=== PATIENT | female | born 1960 | race Two or more races ===

== ENCOUNTER 2016-12-18 19:08 | Inpatient (IN) | payer OTHER ==
[~2016-12-18] VITALS: Ht 160 cm; Wt 68.5 kg
[2016-12-18 20:45] LABS: BASOPHILS % (AUTO) 1.1 % (0.0-2.0); EOSINOPHILS % (AUTO) 7.5 % (0.0-3.0); LYMPHOCYTES % (AUTO) 22.7 % (20.0-45.0); MEAN CORPUSCULAR HEMOGLOBIN 32.6 PG (27.0-31.0); MEAN CORPUSCULAR HGB CONC 36.2 G/DL (32.0-36.0); MEAN CORPUSCULAR VOLUME 90 FL (80-99); MEAN PLATELET VOLUME 9.7 FL (6.5-10.1); MONOCYTES % (AUTO) 4.4 % (1.0-10.0); NEUTROPHILS % (AUTO) 64.4 % (45.0-75.0); PLATELET COUNT 147 K/UL (150-450); RED BLOOD COUNT 4.13 M/UL (4.20-5.40); RED CELL DISTRIBUTION WIDTH 12.7 % (11.6-14.8); WHITE BLOOD COUNT 6.6 K/UL (4.8-10.8)
[2016-12-18 21:01] LABS: APPEARANCE,URINE CLEAR; KETONES,URINE 1+ (NEGATIVE); LEUKOCYTE ESTERASE ,URINE NEGATIVE (NEGATIVE); NITRITE,URINE NEGATIVE (NEGATIVE); PH,URINE 7 (4.5-8.0); PROTEIN,URINE 1+ (NEGATIVE); UROBILINOGEN,URINE NORMAL MG/DL (0.0-1.0)
[2016-12-18 21:07] VITALS: BP 121/76
[2016-12-18 21:12] LABS: RBC,URINE 0-2 /HPF (0 - 2); SQUAMOUS EPITHELIAL CELL,UR OCCASIONAL /LPF (NONE/OCC); WBC,URINE 0-2 /HPF (0 - 2)
[2016-12-18 21:14] LABS: ACETAMINOPHEN < 10 ug/mL (10-30); ALANINE AMINOTRANSFERASE 24 U/L (3-33); ALCOHOL < 10 mg/dL; ANION GAP 18 (5-15); ASPARTATE AMINO TRANSFERASE 29 U/L (5-40); CARBON DIOXIDE 24 mEQ/L (20-30); CHLORIDE 96 mEQ/L (98-107); GLOMERULAR FILTRATION RATE 56.9 mL/min (>60); HEMOLYSIS 106; POTASSIUM 4.4 mEQ/L (3.4-4.9); SODIUM 138 mEQ/L (135-145); TOTAL PROTEIN 7.2 g/dL (6.6-8.7); TROPONIN I < 0.30 ng/mL (<=0.30)
[2016-12-18] MEDS ORDERED: levETIRAcetam 500 MG in D5W 110 ML IVPB ONE (22:15)
[2016-12-18] MEDS ORDERED: levETIRAcetam 500mg vial IV ONE (22:39)
[2016-12-18 23:03] VITALS: BP 130/58
--- NOTE | 2016-12-18 23:31 | Emergency Room Report ---
History of Present Illness General Chief Complaint: Seizure Source: Patient Present Illness HPI 56-year-old female presents to ED for evaluation. Per EMS she [place] Son is at bedside states that he was walking behind the patient when she looked unsteady and had to lean against a wall. Once patient was on the floor he noticed seizure-like activity for approximately 1 minute. Notes some foaming from the mouth. Seizure then subsided. Patient was initially confused on arrival. Son states that patient does not have any history of seizures. Unsure whether patient hit her head. No drug use. No chest pain or shortness of breath. No fevers or chills. No aggravating or leading factors. Denies any other associated symptoms Allergies: Coded Allergies: No Known Allergies (Unverified , 12/18/16) Patient History Past Medical History: none Past Surgical History: none Pertinent Family History: none Social History: Denies: alcohol use, drug use, smoking Now: No Immunizations: UTD Reviewed Nursing Documentation: PMH: Agreed, PSxH: Agreed Nursing Documentation-PMH Past Medical History: No History, Except For Hx Cardiac Problems: Yes - arrythmia (unspecified) Hx Seizures: Yes Review of Systems All Other Systems: negative except mentioned in HPI Physical Exam Vital Signs Date Time Temp Pulse Resp B/P Pulse Ox O2 Delivery O2 Flow Rate FiO2 12/18/16 18:59 98.4 106 16 135/74 99 Room Air Sp02 EP Interpretation: reviewed, normal General Appearance: no apparent distress, alert, GCS 15, non-toxic Head: normocephalic, atraumatic Eyes: bilateral eye PERRL, bilateral eye normal inspection ENT: hearing grossly normal, normal pharynx, no angioedema, normal voice Neck: full range of motion, supple/symm/no masses Respiratory: chest non-tender, lungs clear, normal breath sounds, speaking full sentences Cardiovascular #1: regular rate, rhythm, no edema Cardiovascular #2: 2+ carotid (R), 2+ carotid (L), 2+ radial (R), 2+ radial (L) , 2+ dorsalis pedis (R), 2+ dorsalis pedis (L) Gastrointestinal: normal bowel sounds, non tender, soft, non-distended, no guarding, no rebound Rectal: deferred Genitourinary: normal inspection, no CVA tenderness Musculoskeletal: back normal, gait/station normal, normal range of motion, non- tender Neurologic: alert, oriented x3, responsive, motor strength/tone normal, sensory intact, speech normal Psychiatric: judgement/insight normal, memory normal, mood/affect normal, no suicidal/homicidal ideation Reflexes: 3+ bicep (R), 3+ bicep (L), 3+ tricep (R), 3+ tricep (L), 3+ knee (R) , 3+ knee (L) Skin: normal color, no rash, warm/dry, well hydrated Lymphatic: no adenopathy Medical Decision Making Diagnostic Impression: Primary Impression: New onset seizure ER Course Hospital Course 56-year-old F presents to ED status post seizure. witnessed. no history of seizures Differential diagnosis includes- intracranial injury, arrhythmia, alcohol abuse , substance abuse Clinical course Patient placed on stretcher. Initial history and physical I ordered labs, IV fluids, CT brain Labs-electrolytes okay, leukocytosis noted, hemoglobin/hematocrit stable. EKG - NSR, no acute changes CT Brain ok Given loading dose of Keppra. Patient is more awake but still confused. Given this is a new onset seizure the patient should be admitted Case discussed with and he agreed to accept the patient to his service for further care and support. i. I feel this is a highly complex case requiring extensive working including EKG/Rhythm strip, Xray/CT/US, Blood/urine lab work, repeat exams while in ED, and administration of strong opiates/narcotics for pain control, admission to hospital or close patient follow up. Diagnosis - new onset seizure admitted to telemetry in serious condition Labs Test 12/18/16 20:40 White Blood Count 6.6 K/UL (4.8-10.8) Red Blood Count 4.13 M/UL (4.20-5.40) Hemoglobin 13.5 G/DL (12.0-16.0) Hematocrit 37.2 % (37.0-47.0) Mean Corpuscular Volume 90 FL (80-99) Mean Corpuscular Hemoglobin 32.6 PG (27.0-31.0) Mean Corpuscular Hemoglobin Concent 36.2 G/DL (32.0-36.0) Red Cell Distribution Width 12.7 % (11.6-14.8) Platelet Count 147 K/UL (150-450) Mean Platelet Volume 9.7 FL (6.5-10.1) Neutrophils (%) (Auto) 64.4 % (45.0-75.0) Lymphocytes (%) (Auto) 22.7 % (20.0-45.0) Monocytes (%) (Auto) 4.4 % (1.0-10.0) Eosinophils (%) (Auto) 7.5 % (0.0-3.0) Basophils (%) (Auto) 1.1 % (0.0-2.0) Urine Color Pale yellow Urine Appearance Clear Urine pH 7 (4.5-8.0) Urine Specific [place] 1.010 (1.005-1.035) Urine Protein 1+ (NEGATIVE) Urine Glucose (UA) Negative (NEGATIVE) Urine Ketones 1+ (NEGATIVE) Urine Occult Blood Negative (NEGATIVE) Urine Nitrite Negative (NEGATIVE) Urine Bilirubin Negative (NEGATIVE) Urine Urobilinogen Normal MG/DL (0.0-1.0) Urine Leukocyte Esterase Negative (NEGATIVE) Urine RBC 0-2 /HPF (0 - 2) Urine WBC 0-2 /HPF (0 - 2) Urine Squamous Epithelial Cells Occasional /LPF Urine Bacteria None /HPF (NONE) Sodium Level 138 mEQ/L (135-145) Potassium Level 4.4 mEQ/L (3.4-4.9) Chloride Level 96 mEQ/L (98-107) Carbon Dioxide Level 24 mEQ/L (20-30) Anion Gap 18 (5-15) Blood Urea Nitrogen 21 mg/dL (7-23) Creatinine 1.0 mg/dL (0.5-0.9) Estimat Glomerular Filtration Rate 56.9 mL/min (>60) Glucose Level 188 mg/dL (74-106) Calcium Level 9.0 mg/dL (8.6-10.2) Total Bilirubin 0.8 mg/dL (0.0-1.2) Aspartate Amino Transf (AST/SGOT) 29 U/L (5-40) Alanine Aminotransferase (ALT/SGPT) 24 U/L (3-33) Alkaline Phosphatase 80 U/L (35-104) Total Creatine Kinase 58 U/L (26-140) Troponin I < 0.30 ng/mL (<=0.30) Total Protein 7.2 g/dL (6.6-8.7) Albumin 4.8 g/dL (3.5-5.2) Globulin 2.4 g/dL Albumin/Globulin Ratio 2.0 (1.0-2.7) Salicylates Level < 1 mg/dL (10-30) Urine Opiates Screen Negative (NEGATIVE) Acetaminophen Level < 10 ug/mL (10-30) Urine Barbiturates Screen Negative (NEGATIVE) Phencyclidine (PCP) Screen Negative (NEGATIVE) Urine Amphetamines Screen Negative (NEGATIVE) Urine Benzodiazepines Screen Negative (NEGATIVE) Urine Cocaine Screen Negative (NEGATIVE) Urine Marijuana (THC) Screen Negative (NEGATIVE) Serum Alcohol < 10 mg/dL EKG Diagnostic Results Rate: normal Rhythm: NSR ST Segments: no acute changes ASA given to the pt in ED: No Rhythm Strip Diag. Results EP Interpretation: yes Rhythm: NSR, no PVC's, no ectopy CT/MRI/US Diagnostic Results CT/MRI/US Diagnostic Results : Imaging Test Ordered: CT head Impression no acute process Last Vital Signs Date Time Temp Pulse Resp B/P Pulse Ox O2 Delivery O2 Flow Rate FiO2 12/18/16 23:03 87 24 130/58 99 Room Air 12/18/16 21:07 98.9 Status: improved Disposition: ADMITTED INPATIENT Condition: Serious LIZZ FERGUSON M.D. Dec 18, 2016 23:31
[2016-12-19 01:31] VITALS: BP 134/69
[2016-12-19] MEDS ORDERED: LORazepam Inj 2mg/ml 1ml IV PRN (03:30)
[2016-12-19] MEDS ORDERED: Norco 5mg/325mg tab ORAL PRN (03:30)
[2016-12-19] MEDS: metFORMIN 500mg tab ORAL SCH ×3 (05:53→18:24)
[2016-12-19] MEDS: NovoLOG Insulin Flexpen SUBQ SCH ×4 (06:02→21:00)
[2016-12-19 07:47] VITALS: BP 112/68
[2016-12-19] MEDS: Heparin 5000 units/ml inj SUBQ SCH ×2 (08:18→21:00)
--- NOTE | 2016-12-19 09:23 | Diagnostic Imaging Report ---
Indication: Seizure Technique: Contiguous 5 mm thick transaxial imaging of the head obtained in a Siemens Sensation [address] scanner. Soft tissue and bone windows generated. Total Dose length Product (DLP): [address] Dose Index Volume (CTDIvol): 70.38 mGy Comparison: none Findings: There is mild prominence of the ventricles, basal cisterns, and cerebral sulci consistent with atrophy. Mild, nonspecific, white matter hypoattenuation is noted throughout the brain consistent with chronic small vessel disease. There is no midline shift, edema, acute hemorrhage, mass effect, or abnormal extra-axial fluid collections. Bones and extra osseous soft tissues are unremarkable. Impression: No acute intracranial bleed, mass effect or edema. Mild atrophy of the brain. Nonspecific white matter hypoattenuation probably due to chronic small vessel disease. [facility] has communicated the preliminary results to the Emergency Department. Their findings are largely concordant with this report. The CT scanner at [facility] is accredited by the [employer] and the scans are performed using dose optimization techniques as appropriate to a performed exam including Automatic Exposure control.
[2016-12-19 11:32] VITALS: BP 109/68
--- NOTE | 2016-12-19 15:15 | Neurology Progress Note ---
Objective Physical Exam Last Vital Signs Date Time Temp Pulse Resp B/P Pulse Ox O2 Delivery O2 Flow Rate FiO2 12/19/16 12:00 75 12/19/16 11:32 97.7 18 109/68 99 Room Air Laboratory Tests Test 12/18/16 20:40 White Blood Count 6.6 K/UL (4.8-10.8) Red Blood Count 4.13 M/UL (4.20-5.40) L Hemoglobin 13.5 G/DL (12.0-16.0) Hematocrit 37.2 % (37.0-47.0) Mean Corpuscular Volume 90 FL (80-99) Mean Corpuscular Hemoglobin 32.6 PG (27.0-31.0) H Mean Corpuscular Hemoglobin Concent 36.2 G/DL (32.0-36.0) H Red Cell Distribution Width 12.7 % (11.6-14.8) Platelet Count 147 K/UL (150-450) L Mean Platelet Volume 9.7 FL (6.5-10.1) Neutrophils (%) (Auto) 64.4 % (45.0-75.0) Lymphocytes (%) (Auto) 22.7 % (20.0-45.0) Monocytes (%) (Auto) 4.4 % (1.0-10.0) Eosinophils (%) (Auto) 7.5 % (0.0-3.0) H Basophils (%) (Auto) 1.1 % (0.0-2.0) Urine Color Pale yellow Urine Appearance Clear Urine pH 7 (4.5-8.0) Urine Specific [place] 1.010 (1.005-1.035) Urine Protein 1+ (NEGATIVE) H Urine Glucose (UA) Negative (NEGATIVE) Urine Ketones 1+ (NEGATIVE) H Urine Occult Blood Negative (NEGATIVE) Urine Nitrite Negative (NEGATIVE) Urine Bilirubin Negative (NEGATIVE) Urine Urobilinogen Normal MG/DL (0.0-1.0) Urine Leukocyte Esterase Negative (NEGATIVE) Urine RBC 0-2 /HPF (0 - 2) Urine WBC 0-2 /HPF (0 - 2) Urine Squamous Epithelial Cells Occasional /LPF Urine Bacteria None /HPF (NONE) Sodium Level 138 mEQ/L (135-145) Potassium Level 4.4 mEQ/L (3.4-4.9) Chloride Level 96 mEQ/L (98-107) L Carbon Dioxide Level 24 mEQ/L (20-30) Anion Gap 18 (5-15) H Blood Urea Nitrogen 21 mg/dL (7-23) Creatinine 1.0 mg/dL (0.5-0.9) H Estimat Glomerular Filtration Rate 56.9 mL/min (>60) Glucose Level 188 mg/dL (74-106) H Calcium Level 9.0 mg/dL (8.6-10.2) Total Bilirubin 0.8 mg/dL (0.0-1.2) Aspartate Amino Transf (AST/SGOT) 29 U/L (5-40) Alanine Aminotransferase (ALT/SGPT) 24 U/L (3-33) Alkaline Phosphatase 80 U/L (35-104) Total Creatine Kinase 58 U/L (26-140) Troponin I < 0.30 ng/mL (<=0.30) Total Protein 7.2 g/dL (6.6-8.7) Albumin 4.8 g/dL (3.5-5.2) Globulin 2.4 g/dL Albumin/Globulin Ratio 2.0 (1.0-2.7) Salicylates Level < 1 mg/dL (10-30) L Urine Opiates Screen Negative (NEGATIVE) Acetaminophen Level < 10 ug/mL (10-30) L Urine Barbiturates Screen Negative (NEGATIVE) Phencyclidine (PCP) Screen Negative (NEGATIVE) Urine Amphetamines Screen Negative (NEGATIVE) Urine Benzodiazepines Screen Negative (NEGATIVE) Urine Cocaine Screen Negative (NEGATIVE) Urine Marijuana (THC) Screen Negative (NEGATIVE) Serum Alcohol < 10 mg/dL Impression/Recommendations Problems: (1) New onset seizure Status: stable Recommendations #[id number] NASEEM AUGUSTINE Dec 19, 2016 15:15
[2016-12-19 15:20] VITALS: BP 111/74
--- NOTE | 2016-12-19 16:41 | History and Physical ---
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 [place] Pt doesn't seem to remember a lot at this time and also speaks limited Syriac. She remembers that she had a seizure yesterday but is not sure if that has happened before. She also states that she has a surgery for uterine fibroids scheduled for Wednesday. History was obtained from medical records, according to the records, son was walking behind the patient when she looked unsteady and had to lean against a wall. Once patient was on the floor he noticed seizure-like activity for approximately 1 minute. Notes some foaming from the mouth. Seizure then subsided. Patient was initially confused on arrival to the ED. Son stated that the patient does not have any history of seizures. Unsure whether patient hit her head. No drug use. No chest pain or shortness of breath. No fevers or chills. No aggravating or leading factors. Denies any other associated symptoms Allergies: Coded Allergies: No Known Allergies (Unverified , 12/18/16) Patient History Limited by: language barrier History Provided By: Patient, Medical Record Healthcare decision maker Resuscitation status Full Code Advanced Directive on File No Past Medical/Surgical History Past Medical/Surgical History: (1) Diabetes (2) H/O mitral valve replacement Social History Social History: (1) No illicit drug use (2) No history of alcohol use (3) Non-smoker Review of Systems Constitutional: Denies: chills, fever, malaise, no symptoms, other, see HPI, sweats, weakness Eye: Denies: acuity changes, blurred vision, discharge, double vision, eye pain , no symptoms, nose congestion, nose pain, other, see HPI, tearing ENT: Denies: ear discharge, ear pain, hearing loss, mouth pain, nasal discharge , no symptoms, nose congestion, nose pain, other, see HPI, throat pain, throat swelling Respiratory: Denies: SWIFT, cough, no symptoms, orthopnea, other, see HPI, shortness of breath, sputum, stridor, wheezing Cardiovascular: Denies: PND, chest pain, edema, no symptoms, other, palpitations, see HPI, syncope Gastrointestinal: Denies: abdominal pain, constipation, diarrhea, hematemesis, melena, nausea, no symptoms, other, see HPI, vomiting Genitourinary: Denies: discharge, dysuria, frequency, hematuria, incontinence, no symptoms, other, pain, retention, see HPI, urgency, vag bleed/dc Musculoskeletal: Denies: back pain, gout, joint pain, joint swelling, muscle pain, muscle stiffness, no symptoms, other, see HPI Skin: Denies: change in color, change in hair/nails, dryness, lesions, no symptoms, other, rash, see HPI Psychiatric: Denies: HI, SI, anxiety, depressed feelings, emotional problems, hallucinations, no symptoms, other, prior hx, see HPI Neurological: Reports: seizure Endocrine: Denies: excessive sweating, flushing, increased thirst, increased urine, intolerance to temperature, no symptoms, other, see HPI, unexplained weight loss Hematologic/Lymphatic: Denies: anemia, blood clots, diathesis, easy bleeding, easy bruising, no symptoms, other, see HPI, swollen glands All Other Systems: negative except mentioned in HPI Physical Exam General Appearance: no apparent distress, alert Lines, tubes and drains: peripheral HEENT: normocephalic, atraumatic Neck: normal alignment, supple, normal inspection Respiratory/Chest: chest wall non-tender, lungs clear, normal breath sounds, no respiratory distress Cardiovascular/Chest: normal rate, regular rhythm, no JVD Abdomen: non tender, soft, no organomegaly, no mass Extremities: non-tender, normal inspection, no calf tenderness Skin Exam: warm/dry Neurologic: alert, responsive, normal mood/affect Last 24 Hour Vital Signs Date Time Temp Pulse Resp B/P Pulse Ox O2 Delivery O2 Flow Rate FiO2 12/19/16 15:20 97.9 86 18 111/74 97 Room Air 12/19/16 12:00 75 12/19/16 11:32 97.7 84 18 109/68 99 Room Air 12/19/16 08:00 79 12/19/16 07:47 97.5 78 18 112/68 99 Room Air 12/19/16 04:00 82 12/19/16 02:20 98.9 84 21 134/69 99 Room Air 12/19/16 01:31 84 21 134/69 99 Room Air 12/18/16 23:03 87 24 130/58 99 Room Air 12/18/16 21:07 98.9 88 20 121/76 100 Room Air 12/18/16 19:25 106 16 Room Air 12/18/16 18:59 98.4 106 16 135/74 99 Room Air Intake and Output 12/18/16 12/19/16 19:00 07:00 Intake Total 1340 ml Output Total 200 ml Balance 1140 ml Intake Oral 0 ml IV Total 1340 ml Output Urine Total 200 ml # Voids 2 Laboratory Tests Test 12/18/16 20:40 White Blood Count 6.6 K/UL (4.8-10.8) Red Blood Count 4.13 M/UL (4.20-5.40) L Hemoglobin 13.5 G/DL (12.0-16.0) Hematocrit 37.2 % (37.0-47.0) Mean Corpuscular Volume 90 FL (80-99) Mean Corpuscular Hemoglobin 32.6 PG (27.0-31.0) H Mean Corpuscular Hemoglobin Concent 36.2 G/DL (32.0-36.0) H Red Cell Distribution Width 12.7 % (11.6-14.8) Platelet Count 147 K/UL (150-450) L Mean Platelet Volume 9.7 FL (6.5-10.1) Neutrophils (%) (Auto) 64.4 % (45.0-75.0) Lymphocytes (%) (Auto) 22.7 % (20.0-45.0) Monocytes (%) (Auto) 4.4 % (1.0-10.0) Eosinophils (%) (Auto) 7.5 % (0.0-3.0) H Basophils (%) (Auto) 1.1 % (0.0-2.0) Urine Color Pale yellow Urine Appearance Clear Urine pH 7 (4.5-8.0) Urine Specific [place] 1.010 (1.005-1.035) Urine Protein 1+ (NEGATIVE) H Urine Glucose (UA) Negative (NEGATIVE) Urine Ketones 1+ (NEGATIVE) H Urine Occult Blood Negative (NEGATIVE) Urine Nitrite Negative (NEGATIVE) Urine Bilirubin Negative (NEGATIVE) Urine Urobilinogen Normal MG/DL (0.0-1.0) Urine Leukocyte Esterase Negative (NEGATIVE) Urine RBC 0-2 /HPF (0 - 2) Urine WBC 0-2 /HPF (0 - 2) Urine Squamous Epithelial Cells Occasional /LPF Urine Bacteria None /HPF (NONE) Sodium Level 138 mEQ/L (135-145) Potassium Level 4.4 mEQ/L (3.4-4.9) Chloride Level 96 mEQ/L (98-107) L Carbon Dioxide Level 24 mEQ/L (20-30) Anion Gap 18 (5-15) H Blood Urea Nitrogen 21 mg/dL (7-23) Creatinine 1.0 mg/dL (0.5-0.9) H Estimat Glomerular Filtration Rate 56.9 mL/min (>60) Glucose Level 188 mg/dL (74-106) H Calcium Level 9.0 mg/dL (8.6-10.2) Total Bilirubin 0.8 mg/dL (0.0-1.2) Aspartate Amino Transf (AST/SGOT) 29 U/L (5-40) Alanine Aminotransferase (ALT/SGPT) 24 U/L (3-33) Alkaline Phosphatase 80 U/L (35-104) Total Creatine Kinase 58 U/L (26-140) Troponin I < 0.30 ng/mL (<=0.30) Total Protein 7.2 g/dL (6.6-8.7) Albumin 4.8 g/dL (3.5-5.2) Globulin 2.4 g/dL Albumin/Globulin Ratio 2.0 (1.0-2.7) Salicylates Level < 1 mg/dL (10-30) L Urine Opiates Screen Negative (NEGATIVE) Acetaminophen Level < 10 ug/mL (10-30) L Urine Barbiturates Screen Negative (NEGATIVE) Phencyclidine (PCP) Screen Negative (NEGATIVE) Urine Amphetamines Screen Negative (NEGATIVE) Urine Benzodiazepines Screen Negative (NEGATIVE) Urine Cocaine Screen Negative (NEGATIVE) Urine Marijuana (THC) Screen Negative (NEGATIVE) Serum Alcohol < 10 mg/dL Height (Feet): 5 Height (Inches): 3.00 Weight (Pounds): 151 Medications Current Medications Medications (Trade) Dose Ordered Sig/Caleb Route PRN Reason Start Time Stop Time Status Last Admin Dose Admin Acetaminophen (Tylenol) 650 mg Q4H PRN ORAL Mild Pain/Temp > 100.5 12/19/16 03:30 01/18/17 03:29 Acetaminophen/ Hydrocodone Bitart (Ipava 5/325) 1 tab Q4H PRN ORAL Moderate Pain (Pain Scale 4-6) 12/19/16 03:30 12/26/16 03:29 Dextrose (Dextrose 50%) STAT PRN IV Hypoglycemia 12/19/16 03:30 01/18/17 03:29 Heparin Sodium (Porcine) (Heparin 5000 units/ml) 5,000 units EVERY 12 HOURS SUBQ 12/19/16 09:00 01/18/17 08:59 Insulin Aspart (NovoLOG) BEFORE MEALS AND HS SUBQ 12/19/16 06:30 01/18/17 06:29 Levetiracetam (Keppra) 500 mg Q12HR ORAL 12/19/16 09:00 01/18/17 08:59 12/19/16 08:18 Lorazepam (Ativan 2mg/ml 1ml) 1 mg Q2H PRN IV For Seizures 12/19/16 03:30 12/26/16 03:29 Metformin HCl (Glucophage) 500 mg TIAC ORAL 12/19/16 06:30 01/18/17 06:29 12/19/16 11:28 Sodium Chloride (Sodium Chloride 1000ml bag) 1,000 ml @ 75 mls/hr [id number] 12/19/16 04:30 01/18/17 04:29 12/19/16 04:03 Assessment/Plan Problem List: (1) New onset seizure ICD Codes: R56.9 - Unspecified convulsions SNOMED: 01935346 (2) Diabetes ICD Codes: E11.9 - Type 2 diabetes mellitus without complications SNOMED: 64732934 (3) H/O mitral valve replacement ICD Codes: Z95.2 - Presence of prosthetic heart valve SNOMED: 69325773, 276235207, [id number] Assessment/Plan Neurology Consult Cardiology consult Accucheck with sliding scale coverage Monitor Vitals Seizure precautions DVT prophylaxis PPI AM labs Gabby Alexander N.P. Dec 19, 2016 16:41
[2016-12-19 20:00] VITALS: BP 113/63
--- NOTE | 2016-12-19 22:15 | Consultation ---
DATE OF CONSULTATION: 12/19/2016 TIME: 10 a.m. CHIEF COMPLAINT: New onset of seizure. BRIEF HISTORY: This is a 56-year-old female who lives at home presents to [facility] at this time with history of new onset of seizure. The patient was diagnosed above and admitted to telemetry for further care. Currently, sleeping in bed, very lethargic. Denies any questions. PAST MEDICAL HISTORY: Diabetes. PAST SURGICAL HISTORY: Unknown. MEDICATIONS: Heparin, Keppra, NovoLog, Glucophage, Ativan, Tylenol, and [place]. ALLERGIES: Denies. SOCIAL HISTORY: No smoking. No alcohol. No intravenous drug abuse. FAMILY HISTORY: Noncontributory. REVIEW OF SYSTEMS: Unavailable. PHYSICAL EXAMINATION: GENERAL: The patient is lethargic, sleeping in bed, questions. VITAL SIGNS: Temperature 97 degrees, pulse 78, respiratory rate 18, and blood pressure 112/68. CARDIOVASCULAR: No murmurs. LUNGS: Distant and clear. ABDOMEN: Bowel sound positive. Nontender and nondistended. EXTREMITIES: No cyanosis, clubbing, or edema NEUROLOGIC: The patient moves all extremities slightly weak. LABORATORY AND DIAGNOSTIC DATA: Platelet 147,000, otherwise CBC is normal. Chloride is 96, creatinine 1.0 and glucose 188, otherwise CMP is normal. Troponin is less than 0.3. Urinalysis show 1+ ketones. Urine toxicology, salicylate less than 1. Tylenol less than 10, otherwise negative. ASSESSMENT: 1. New onset of seizure. 2. Diabetes. 3. Hyperglycemia. PLAN: 1. Continue pre-medications. 2. Seizure control. 3. OT/PT. 4. Dietary followup. 5. CBC and BMP in the morning. 6. Blood sugar control. 7. Resume home medications. 8. Dr. Melton, Neurology to follow. 9. We will continue to follow this patient. Thank you. Vasquez Gonzales D.O. DR: DIONE JOB#: [id number] CC:
[2016-12-20] VITALS (7 sets, daily range): BP systolic 103–128; BP diastolic 56–74
--- NOTE | 2016-12-20 02:30 | Consultation ---
DATE OF CONSULTATION: 12/19/2016 NEUROLOGICAL CONSULTATION CONSULTING PHYSICIAN: Samuel Melton M.D. REQUESTING PHYSICIAN: Patrick Lopez M.D. HISTORY OF PRESENT ILLNESS: This is a 56-year-old female, seen in neurological consultation to evaluate episode of generalized tonic-clonic seizure. The patient informed me that yesterday whole day, she was not eating except one piece of fruit, then around 6 p.m., she was with her son at a shopping mall. She started to feel generalized weakness, confusion, and disorientation. She had to lean towards the wall and within a minute, she lost consciousness. She got foaming from her mouth, generalized tonic-clonic movement. Her son was able to keep her down to the floor. As she started to get awake, she was quite confused and disoriented. Paramedics were called to the scene. She was brought to emergency room. Her initial vital signs were stable. Blood pressure 135/74. She was initially confused, gradually subsided. CT of the brain was obtained revealing mild diffuse atrophy, small vessel disease. EKG with normal sinus rhythm. Her laboratory work included a normal CBC except elevated MCV and MCH. Urinalysis, 1+ ketones and 1+ protein. Electrolyte panel with creatinine 1.0, blood sugar 188. Calcium 9.0. Normal troponin. Since admission until present, there was no further paroxysmal event. The patient now recalls that within few years, she had a few episodes of almost fainting. On one occasion, she had an episode of fainting with fall and head trauma, had EEG studies. No treatment was initiated. PAST MEDICAL HISTORY: History of mitral valve replacement, history of atrial fibrillation, diabetes type 2, rheumatoid fever in childhood, and hyperlipidemia. Her treating physician is Dr. Obie Zapata. MEDICATIONS: List of treatment, the patient was unable to recall except metoprolol and treatment for diabetes. Following admission, she was placed on Keppra 500 mg b.i.d. She is on metformin, lorazepam, [place] p.r.n., subcutaneous heparin, and Tylenol for pain. ALLERGIES: None reported. SOCIAL HISTORY: Lives at home with her son. She is on disability. No alcohol. No drug abuse. Nonsmoker. FAMILY HISTORY: Noncontributory. No family members with seizure disorder. PHYSICAL EXAMINATION: GENERAL: The patient is a well-developed and well-nourished female, not in acute distress, sitting at the bedside with son in the room. VITAL SIGNS: Her vital signs now are stable. Blood pressure 109/68 and temperature 97.7 degrees. HEENT: Head, normocephalic. No evidence of trauma. No otorrhea. No rhinorrhea. NECK: Supple. No meningeal signs. MUSCULOSKELETAL: Unremarkable except bruises on her both knees. Peripheral pulses 1+ symmetric. MENTAL STATUS: She is alert and oriented x3. Speech is fluent with no evidence of aphasia or apraxia. CRANIAL NERVE II: Pupils both responding to light and accommodation. Extraocular movement intact. No nystagmus. CRANIAL NERVE V: Normal corneal responses. CRANIAL NERVE VII: No facial asymmetry. CRANIAL NERVE VIII: Normal hearing. CRANIAL NERVE IX THROUGH XII: Tongue is in midline. Symmetric palate elevation. MOTOR EXAMINATION: Normal muscle tone, strength 5/5 in all extremities. No involuntary movement. Deep reflexes 1+ symmetric with downgoing toes on both sides. SENSORY EXAM: Normal to pinprick and light touch. Gait is stable. IMPRESSION: 1. History of single generalized tonic-clonic seizure episode with a history of previous presyncope/loss of consciousness episode of unknown etiology. 2. Diabetes type 2. 3. Status post mitral valve replacement. 4. Atrial fibrillation. 5. Hyperlipidemia. DISCUSSION: The patient has no evidence of focal lateralizing neurological deficit. CAT scan of the brain is unremarkable. No acute abnormalities. EEG now pending. The patient has confused episodes without loss of consciousness, which resemble presyncope, although epileptogenic activity is not excluded. Now with no obvious reason for current seizure as well as previous episodes of loss of consciousness, I would recommend the patient to start on treatment Keppra 500 mg b.i.d. to be titrated as necessary with maintaining treatment as long as necessary. Thank you for allowing me to see this interesting patient in neurological consultation. Samuel Melton M.D. DR: JACQUE JOB#: [id number] CC:
[2016-12-20] MEDS: NovoLOG Insulin Flexpen SUBQ SCH ×4 (06:30→20:06)
[2016-12-20] MEDS: metFORMIN 500mg tab ORAL SCH ×3 (06:59→12:42)
[2016-12-20 07:29] LABS: CALCIUM 8.5 mg/dL (8.6-10.2); GLOMERULAR FILTRATION RATE 56.9 mL/min (>60)
[2016-12-20 07:32] LABS: BASOPHILS % (AUTO) 1.5 % (0.0-2.0); EOSINOPHILS % (AUTO) 8.7 % (0.0-3.0); LYMPHOCYTES % (AUTO) 36.3 % (20.0-45.0); MEAN CORPUSCULAR HEMOGLOBIN 30.5 PG (27.0-31.0); MEAN CORPUSCULAR VOLUME 90 FL (80-99); MEAN PLATELET VOLUME 9.6 FL (6.5-10.1); MONOCYTES % (AUTO) 3.8 % (1.0-10.0); NEUTROPHILS % (AUTO) 49.7 % (45.0-75.0); PLATELET COUNT 149 K/UL (150-450); RED BLOOD COUNT 3.98 M/UL (4.20-5.40); RED CELL DISTRIBUTION WIDTH 12.6 % (11.6-14.8); WHITE BLOOD COUNT 6.5 K/UL (4.8-10.8)
[2016-12-20 07:42] LABS: THYROID STIMULATING HORMONE 4.44 uIU/mL (0.300-4.500)
--- NOTE | 2016-12-20 08:41 | General Progress Note ---
Assessment/Plan Problem List: (1) New onset seizure ICD Codes: R56.9 - Unspecified convulsions SNOMED: 46618171 (2) Diabetes ICD Codes: E11.9 - Type 2 diabetes mellitus without complications SNOMED: 93775780 Status: stable, progressing, tolerating diet Assessment/Plan ot pt diet seizure bs control cbc bmp am Subjective Constitutional: Reports: weakness Allergies: Coded Allergies: No Known Allergies (Unverified , 12/18/16) All Systems: reviewed and negative except above Subjective sleepy in bed Objective Last 24 Hour Vital Signs Date Time Temp Pulse Resp B/P Pulse Ox O2 Delivery O2 Flow Rate FiO2 12/20/16 07:41 96.8 75 18 120/70 97 Room Air 12/20/16 04:00 78 12/20/16 04:00 97.5 78 16 108/56 97 Room Air 12/20/16 00:00 97.7 81 16 112/72 97 Room Air 12/20/16 00:00 78 12/19/16 20:00 97.9 81 16 113/63 97 Room Air 12/19/16 20:00 77 12/19/16 16:00 82 12/19/16 15:20 97.9 86 18 111/74 97 Room Air 12/19/16 12:00 75 12/19/16 11:32 97.7 84 18 109/68 99 Room Air Intake and Output 12/19/16 12/20/16 19:00 07:00 Intake Total 1065 ml 915 ml Balance 1065 ml 915 ml Intake Oral 240 ml 240 ml IV Total 825 ml 675 ml # Voids 5 2 Laboratory Tests 12/20/16 05:55: White Blood Count 6.5, Red Blood Count 3.98L, Hemoglobin 12.1, Hematocrit 35.7L , Mean Corpuscular Volume 90, Mean Corpuscular Hemoglobin 30.5, Mean Corpuscular Hemoglobin Concent 34.0, Red Cell Distribution Width 12.6, Platelet Count 149L, Mean Platelet Volume 9.6, Neutrophils (%) (Auto) 49.7, Lymphocytes ( %) (Auto) 36.3, Monocytes (%) (Auto) 3.8, Eosinophils (%) (Auto) 8.7H, Basophils (%) (Auto) 1.5, Sodium Level 140, Potassium Level 4.0, Chloride Level 101, Carbon Dioxide Level 25, Anion Gap 14, Blood Urea Nitrogen 17, Creatinine 1.0H, Estimat Glomerular Filtration Rate 56.9, Glucose Level 189H, Calcium Level 8.5L, Thyroid Stimulating Hormone (TSH) 4.440 Height (Feet): 5 Height (Inches): 3.00 Weight (Pounds): 151 General Appearance: lethargic EENT: normal ENT inspection Neck: normal alignment Cardiovascular: normal peripheral pulses, normal rate, regular rhythm Respiratory/Chest: chest wall non-tender, lungs clear, normal breath sounds Abdomen: normal bowel sounds, non tender, soft Extremities: normal inspection Edema: no edema noted Arm (L), no edema noted Arm (R), no edema noted Leg (L), no edema noted Leg (R), no edema noted Pedal (L), no edema noted Pedal (R), no edema noted Generalized Neurologic: motor weakness Skin: normal pigmentation, warm/dry MARKY ROGERS Dec 20, 2016 08:41
[2016-12-20] MEDS: Heparin 5000 units/ml inj SUBQ SCH ×2 (09:00→20:06)
--- NOTE | 2016-12-20 17:50 | Nephrology Progress Note ---
Assessment/Plan Problem List: (1) New onset seizure (2) Diabetes (3) H/O mitral valve replacement Plan Non compliance Neurology Consult Cardiology consult Accucheck with sliding scale coverage Monitor Vitals Seizure precautions DVT prophylaxis PPI AM labs Subjective Constitutional: Denies: chills, diaphoresis, fever, malaise, no symptoms, other , weakness HEENT: Denies: blurred vision, double vision, ear discharge, ear pain, eye pain , mouth pain, mouth swelling, no symptoms, nose congestion, nose pain, other, tearing, throat pain, throat swelling Genitourinary: Denies: burning, discharge, flank pain, frequency, hematuria, incontinence, no symptoms, other, pain, urgency Neurologic/Psychiatric: Denies: anxiety, depressed, emotional problems, headache, no symptoms, numbness, other, paresthesia, pre-existing deficit, seizure, tingling, tremors, weakness Subjective In bed, in no apparent distress Objective Objective Last 24 Hour Vital Signs Date Time Temp Pulse Resp B/P Pulse Ox O2 Delivery O2 Flow Rate FiO2 12/20/16 15:22 98.4 82 18 109/74 97 Room Air 12/20/16 12:00 80 12/20/16 11:19 97.1 76 18 103/58 98 Room Air 12/20/16 08:00 80 12/20/16 07:41 96.8 75 18 120/70 97 Room Air 12/20/16 04:00 78 12/20/16 04:00 97.5 78 16 108/56 97 Room Air 12/20/16 00:00 97.7 81 16 112/72 97 Room Air 12/20/16 00:00 78 12/19/16 20:00 97.9 81 16 113/63 97 Room Air 12/19/16 20:00 77 Intake and Output 12/19/16 12/20/16 19:00 07:00 Intake Total 1065 ml 915 ml Balance 1065 ml 915 ml Intake Oral 240 ml 240 ml IV Total 825 ml 675 ml # Voids 5 2 Laboratory Tests 12/20/16 05:55: White Blood Count 6.5, Red Blood Count 3.98L, Hemoglobin 12.1, Hematocrit 35.7L , Mean Corpuscular Volume 90, Mean Corpuscular Hemoglobin 30.5, Mean Corpuscular Hemoglobin Concent 34.0, Red Cell Distribution Width 12.6, Platelet Count 149L, Mean Platelet Volume 9.6, Neutrophils (%) (Auto) 49.7, Lymphocytes ( %) (Auto) 36.3, Monocytes (%) (Auto) 3.8, Eosinophils (%) (Auto) 8.7H, Basophils (%) (Auto) 1.5, Sodium Level 140, Potassium Level 4.0, Chloride Level 101, Carbon Dioxide Level 25, Anion Gap 14, Blood Urea Nitrogen 17, Creatinine 1.0H, Estimat Glomerular Filtration Rate 56.9, Glucose Level 189H, Calcium Level 8.5L, Thyroid Stimulating Hormone (TSH) 4.440 Height (Feet): 5 Height (Inches): 3.00 Weight (Pounds): 151 General Appearance: no apparent distress, alert EENT: normal ENT inspection Neck: normal alignment, supple, normal inspection Cardiovascular: normal rate, regular rhythm, no JVD Respiratory/Chest: lungs clear, normal breath sounds, no respiratory distress Abdomen: soft, no organomegaly, no mass Extremities: non-tender, normal inspection Neurologic: alert, responsive, normal mood/affect Gabby Alexander N.P. Dec 20, 2016 17:50
[2016-12-21] VITALS: BP 134/69
--- NOTE | 2016-12-21 00:15 | Electroencephalogram ---
DATE OF PROCEDURE: 12/19/2016 REQUESTING PHYSICIAN: Patrick Lopez M.D. HISTORY: This is a 56-year-old female with a history of witnessed generalized seizure episode and previous episodes of unresponsiveness, now being treated for atrial fibrillation, mitral valve replacement, and pulmonary edema. Current treatment include Keppra. TECHNIQUE: EEG was done using 18 electrodes placed scalp to scalp and scalp to ear montages according to 10/20 International System. From the beginning of recording, background activity consisted of well regulated 8 to 9 cycles per second. This intermittent appearance of slightly sharply contoured theta activity in the left temporal area became sharply contoured phase reversal at T3, at times F7 area developing phase reversing. There is no clinical evidence of paroxysmal activity. Photic stimulation from 3 to 32 hertz result in no significant changes. As recording progressed, there was evidence of attenuation of background corresponding to sleep stages. No asymmetry from side to side was noted except occasional appearance of slightly higher altitude in a left parietal region corresponding with a sharply contoured theta activities. IMPRESSION: Abnormal EEG in presence of epileptiform activity emanating from left temporal-frontal region. COMMENT: Above abnormality indicate the patient has a risk of developing clinical seizure activity, underlying left temporal area structural lesion to be ruled out. Samuel Melton M.D. DR: DESTINY JOB#: [id number] CC:
[2016-12-21 04:00] VITALS: BP 132/63
[2016-12-21] MEDS: metFORMIN 500mg tab ORAL SCH ×2 (06:03→12:42)
[2016-12-21] MEDS: NovoLOG Insulin Flexpen SUBQ SCH ×2 (06:03→11:30)
[2016-12-21 08:09] LABS: BASOPHILS % (AUTO) 1.9 % (0.0-2.0); EOSINOPHILS % (AUTO) 11.1 % (0.0-3.0); LYMPHOCYTES % (AUTO) 33.8 % (20.0-45.0); MEAN CORPUSCULAR HEMOGLOBIN 30.7 PG (27.0-31.0); MEAN CORPUSCULAR HGB CONC 34.2 G/DL (32.0-36.0); MEAN CORPUSCULAR VOLUME 90 FL (80-99); MEAN PLATELET VOLUME 9.1 FL (6.5-10.1); MONOCYTES % (AUTO) 4.9 % (1.0-10.0); NEUTROPHILS % (AUTO) 48.3 % (45.0-75.0); PLATELET COUNT 133 K/UL (150-450); RED BLOOD COUNT 3.67 M/UL (4.20-5.40); RED CELL DISTRIBUTION WIDTH 12.3 % (11.6-14.8); WHITE BLOOD COUNT 5.3 K/UL (4.8-10.8)
[2016-12-21 08:17] LABS: ANION GAP 14 (5-15); CALCIUM 8.3 mg/dL (8.6-10.2); CARBON DIOXIDE 23 mEQ/L (20-30); CHLORIDE 103 mEQ/L (98-107); CREATININE 0.8 mg/dL (0.5-0.9); GLOMERULAR FILTRATION RATE > 60 mL/min (>60); HEMOLYSIS 4; POTASSIUM 3.9 mEQ/L (3.4-4.9); SODIUM 140 mEQ/L (135-145)
[2016-12-21] MEDS: Heparin 5000 units/ml inj SUBQ SCH (08:56)
--- NOTE | 2016-12-21 12:52 | Neurology Progress Note ---
Objective Physical Exam Last Vital Signs Date Time Temp Pulse Resp B/P Pulse Ox O2 Delivery O2 Flow Rate FiO2 12/21/16 04:00 96.8 78 20 132/63 98 Room Air Laboratory Tests Test 12/21/16 07:25 White Blood Count 5.3 K/UL (4.8-10.8) Red Blood Count 3.67 M/UL (4.20-5.40) L Hemoglobin 11.3 G/DL (12.0-16.0) L Hematocrit 32.9 % (37.0-47.0) L Mean Corpuscular Volume 90 FL (80-99) Mean Corpuscular Hemoglobin 30.7 PG (27.0-31.0) Mean Corpuscular Hemoglobin Concent 34.2 G/DL (32.0-36.0) Red Cell Distribution Width 12.3 % (11.6-14.8) Platelet Count 133 K/UL (150-450) L Mean Platelet Volume 9.1 FL (6.5-10.1) Neutrophils (%) (Auto) 48.3 % (45.0-75.0) Lymphocytes (%) (Auto) 33.8 % (20.0-45.0) Monocytes (%) (Auto) 4.9 % (1.0-10.0) Eosinophils (%) (Auto) 11.1 % (0.0-3.0) H Basophils (%) (Auto) 1.9 % (0.0-2.0) Sodium Level 140 mEQ/L (135-145) Potassium Level 3.9 mEQ/L (3.4-4.9) Chloride Level 103 mEQ/L (98-107) Carbon Dioxide Level 23 mEQ/L (20-30) Anion Gap 14 (5-15) Blood Urea Nitrogen 12 mg/dL (7-23) Creatinine 0.8 mg/dL (0.5-0.9) Estimat Glomerular Filtration Rate > 60 mL/min (>60) Glucose Level 194 mg/dL (74-106) H Calcium Level 8.3 mg/dL (8.6-10.2) L Impression/Recommendations Problems: (1) New onset seizure (2) abnormal EEG Status: stable Recommendations #[id number] keppra 250 mg bid < R abdomen pain when using 500mg bid > MRI brain pend d/c planning NASEEM AUGUSTINE Dec 21, 2016 12:52
--- NOTE | 2016-12-21 14:40 | General Progress Note ---
Assessment/Plan Problem List: (1) New onset seizure ICD Codes: R56.9 - Unspecified convulsions SNOMED: 21798117 (2) Diabetes ICD Codes: E11.9 - Type 2 diabetes mellitus without complications SNOMED: [id number] Status: stable, progressing, tolerating diet Assessment/Plan ot pt diet seizure bs control dc plan Subjective Constitutional: Reports: weakness Allergies: Coded Allergies: No Known Allergies (Unverified , 12/18/16) All Systems: reviewed and negative except above Subjective sleepy in bed Objective Last 24 Hour Vital Signs Date Time Temp Pulse Resp B/P Pulse Ox O2 Delivery O2 Flow Rate FiO2 12/21/16 04:00 96.8 78 20 132/63 98 Room Air 12/21/16 04:00 78 12/21/16 00:00 76 12/21/16 00:00 98.1 83 19 134/69 98 Room Air 12/20/16 21:50 82 12/20/16 20:00 97.9 84 18 128/72 100 Room Air 12/20/16 18:44 82 12/20/16 15:22 98.4 82 18 109/74 97 Room Air Intake and Output 12/20/16 12/21/16 19:00 07:00 Intake Total 555 ml 1400 ml Balance 555 ml 1400 ml Intake Oral 480 ml 500 ml IV Total 75 ml 900 ml # Voids 4 Laboratory Tests 12/21/16 07:25: White Blood Count 5.3, Red Blood Count 3.67L, Hemoglobin 11.3L, Hematocrit 32.9L , Mean Corpuscular Volume 90, Mean Corpuscular Hemoglobin 30.7, Mean Corpuscular Hemoglobin Concent 34.2, Red Cell Distribution Width 12.3, Platelet Count 133L, Mean Platelet Volume 9.1, Neutrophils (%) (Auto) 48.3, Lymphocytes ( %) (Auto) 33.8, Monocytes (%) (Auto) 4.9, Eosinophils (%) (Auto) 11.1H, Basophils (%) (Auto) 1.9, Sodium Level 140, Potassium Level 3.9, Chloride Level 103, Carbon Dioxide Level 23, Anion Gap 14, Blood Urea Nitrogen 12, Creatinine 0.8, Estimat Glomerular Filtration Rate > 60, Glucose Level 194H, Calcium Level 8.3L Height (Feet): 5 Height (Inches): 3.00 Weight (Pounds): 151 General Appearance: lethargic EENT: normal ENT inspection Neck: normal alignment Cardiovascular: normal peripheral pulses, normal rate, regular rhythm Respiratory/Chest: chest wall non-tender, lungs clear, normal breath sounds Extremities: normal inspection Edema: no edema noted Arm (L), no edema noted Arm (R), no edema noted Leg (L), no edema noted Leg (R), no edema noted Pedal (L), no edema noted Pedal (R), no edema noted Generalized Neurologic: responsive, motor weakness Skin: normal pigmentation, warm/dry MARKY ROGERS Dec 21, 2016 14:40
--- NOTE | 2016-12-21 17:00 | Diagnostic Imaging Report ---
Indication: Seizure Technique: The head was imaged in a 1.5 Ksenia magnet. Sequences obtained include sagittal and axial T1 FLAIR, axial T2 fast spin echo with fat saturation, axial T2 FLAIR, diffusion and ADC map. Comparison: None Findings: There is mild prominence of the sulci, ventricles, and basal cisterns consistent with atrophy. Mild, nonspecific T2 hyperintensity noted within white matter. This may be due to chronic small vessel disease. There is no restricted diffusion. Chun-white differentiation is normal. There is no mass effect, midline shift, edema, or hemorrhage. There are no abnormal extra-axial or intra-axial fluid collections. The corpus callosum and sella are unremarkable. The brainstem and cerebellum are unremarkable. Bone marrow signal within the visualized osseous structures appears age appropriate and unremarkable otherwise. Impression: No acute intracranial findings. Mild atrophy and evidence of chronic small vessel disease involving white matter tracts. Note: There is artifact over the left temporal lobe and hippocampus on T2 FLAIR. This is not a true abnormality.
--- NOTE | 2016-12-21 17:23 | Nephrology Progress Note ---
Assessment/Plan Problem List: (1) New onset seizure (2) Diabetes (3) H/O mitral valve replacement Plan Non compliance Neurology Consult Cardiology consult Accucheck with sliding scale coverage Monitor Vitals Seizure precautions DVT prophylaxis PPI AM labs Subjective Constitutional: Denies: chills, diaphoresis, fever, malaise, no symptoms, other , weakness HEENT: Denies: blurred vision, double vision, ear discharge, ear pain, eye pain , mouth pain, mouth swelling, no symptoms, nose congestion, nose pain, other, tearing, throat pain, throat swelling Genitourinary: Denies: burning, discharge, flank pain, frequency, hematuria, incontinence, no symptoms, other, pain, urgency Neurologic/Psychiatric: Denies: anxiety, depressed, emotional problems, headache, no symptoms, numbness, other, paresthesia, pre-existing deficit, seizure, tingling, tremors, weakness Subjective In bed, in no apparent distress Objective Objective Last 24 Hour Vital Signs Date Time Temp Pulse Resp B/P Pulse Ox O2 Delivery O2 Flow Rate FiO2 12/21/16 04:00 96.8 78 20 132/63 98 Room Air 12/21/16 04:00 78 12/21/16 00:00 76 12/21/16 00:00 98.1 83 19 134/69 98 Room Air 12/20/16 21:50 82 12/20/16 20:00 97.9 84 18 128/72 100 Room Air 12/20/16 18:44 82 Intake and Output 12/20/16 12/21/16 19:00 07:00 Intake Total 555 ml 1400 ml Balance 555 ml 1400 ml Intake Oral 480 ml 500 ml IV Total 75 ml 900 ml # Voids 4 Laboratory Tests 12/21/16 07:25: White Blood Count 5.3, Red Blood Count 3.67L, Hemoglobin 11.3L, Hematocrit 32.9L , Mean Corpuscular Volume 90, Mean Corpuscular Hemoglobin 30.7, Mean Corpuscular Hemoglobin Concent 34.2, Red Cell Distribution Width 12.3, Platelet Count 133L, Mean Platelet Volume 9.1, Neutrophils (%) (Auto) 48.3, Lymphocytes ( %) (Auto) 33.8, Monocytes (%) (Auto) 4.9, Eosinophils (%) (Auto) 11.1H, Basophils (%) (Auto) 1.9, Sodium Level 140, Potassium Level 3.9, Chloride Level 103, Carbon Dioxide Level 23, Anion Gap 14, Blood Urea Nitrogen 12, Creatinine 0.8, Estimat Glomerular Filtration Rate > 60, Glucose Level 194H, Calcium Level 8.3L Height (Feet): 5 Height (Inches): 3.00 Weight (Pounds): 151 General Appearance: no apparent distress, alert EENT: normal ENT inspection Neck: normal alignment Cardiovascular: normal rate, regular rhythm, no JVD Respiratory/Chest: lungs clear, normal breath sounds, no respiratory distress Abdomen: non tender, soft, no organomegaly Extremities: non-tender, normal inspection, no calf tenderness Neurologic: alert, oriented x 3, responsive, normal mood/affect Gabby Alexander N.P. Dec 21, 2016 17:23
[2016-12-21] MEDS ORDERED: CLOPIDOGREL75 MG ORAL (17:27)
[2016-12-21] MEDS ORDERED: PRAVASTATIN SOD20 M1 ORAL (17:27)
[2016-12-21] MEDS ORDERED: FAMOTIDINE40 MG ORAL (17:27)
[2016-12-21] MEDS ORDERED: GLIMEPIRIDE4 MG ORAL (17:27)
[2016-12-21] MEDS ORDERED: JANUVIA25 MG ORAL (17:27)
[2016-12-21] MEDS ORDERED: m PO (17:27)
[2016-12-21] MEDS ORDERED: VITAMIN D250000 UNI1 ORAL (17:27)
[2016-12-21] MEDS ORDERED: METFORMIN HCL500 M1 ORAL (17:27)
[2016-12-21] MEDS ORDERED: KEPPRA500 M4 ORAL (17:31)
--- NOTE | 2016-12-22 02:30 | Consultation ---
DATE OF CONSULTATION: 12/21/2016 CARDIOLOGY CONSULTATION CONSULTING PHYSICIAN: Jun Brown M.D. REFERRING PHYSICIAN: Patrick Lopez M.D. REASON FOR CONSULTATION: For management of atrial fibrillation in the patient with history of mitral valve replacement. HISTORY OF PRESENT ILLNESS: The patient is a very unfortunate 56-year-old female, who essentially presents to the emergency department with new onset of seizure activity. Apparently, the patient had a witnessed seizure activity by the patient's, which lasted just about a minute and foam coming out of the mouth. The patient had post seizure confusion and fatigue. She was brought to the emergency department for further evaluation and management. The patient's cardiac history is significant for history of rheumatic fever, history of mitral valve replacement most likely due to mitral stenosis, and history of atrial fibrillation. I was asked by Dr. Lopez to consult this patient from cardiology service for management of atrial fibrillation and mitral valve replacement. PAST MEDICAL HISTORY: Includes: 1. Atrial fibrillation. 2. Mitral valve replacement likely due to mitral valve stenosis. 3. Diabetes mellitus type 2. 4. History of rheumatic fever. 5. History of hyperlipidemia. 6. Hyperthyroidism. PAST SURGICAL HISTORY: Mitral valve replacement most likely bioprosthetic as the patient is not on Coumadin. MEDICATIONS: List of medications at home, clopidogrel 75 mg p.o. daily, vitamin D 50,000 units one tablet once a week, famotidine 40 mg p.o. q.12 hours, glimepiride 4 mg p.o. twice daily, Keppra 250 mg q.12 hours, metformin 500 mg twice daily, pravastatin 20 mg p.o. at bedtime, Januvia 100 mg p.o. daily, and methimazole 5 mg p.o. daily. ALLERGIES: No known drug allergies. SOCIAL HISTORY: Denies any tobacco, alcohol, or illicit drug use. REVIEW OF SYSTEMS: It is from the records as the patient has limited Urdu abilities.HEENT: Denies any headache, diplopia, or blurred vision. Constitutional: Has some generalized weakness. Denies any fever, chills, or night sweats. Cardiovascular: Denies any chest pain, shortness breath, PND, orthopnea, and leg swelling. Pulmonary: Denies any cough, hemoptysis, or wheezing. Gastrointestinal: Denies any nausea, vomiting, diarrhea, constipation, abdominal pain, or GI bleed. Genitourinary: Denies any hematuria, dysuria, or incontinence. Neurology: Denies any motor dysfunction, sensory deficit, or altered speech. The patient had a witnessed seizure activity. PHYSICAL EXAMINATION: VITAL SIGNS: Blood pressure 135/74, respirations 16, pulse of 106, temperature 98.4 degrees Fahrenheit, and O2 saturation 99% on room air. GENERAL: The patient is a very unfortunate 56-year-old female, in no apparent respiratory distress. Alert and oriented x4. HEENT: Atraumatic, normocephalic, and anicteric. Pupils are equal, round, and reactive to light and accommodation. Extraocular muscles intact. NECK: JVP is less than 5 cm. No carotid bruits. Carotid upstrokes 2+ bilaterally. CARDIOVASCULAR: Normal S1 and S2. Regular rate and rhythm. No murmurs, gallops, or rubs. PMI is at fourth intercostal space at the midclavicular line. LUNGS: Clear to auscultation bilaterally. ABDOMEN: Soft, nontender, and nondistended. No hepatosplenomegaly. Positive bowel sounds. EXTREMITIES: No evidence of edema, clubbing, or cyanosis. LABORATORY AND DIAGNOSTIC FINDINGS: WBC 6.6, hemoglobin 13.5, hematocrit 37.2, and platelet count is 147,000. Sodium 138, potassium is 4.4, chloride is 96, bicarbonate 24, BUN of 21, creatinine 1.0, glucose is 188, and calcium is 9.0. TSH is 4.4. Troponin I less than 0.3. Her urine tox is negative. CT of head showed no acute intracranial bleed, mass effect, or edema. A 12-lead electrocardiogram shows sinus rhythm with no evidence of ectopy and no acute ECG changes. ASSESSMENT AND PLAN: The patient is a very unfortunate 56-year-old lady, who is seen in Cardiology consultation at the request of Dr. Lopez. 1. Paroxysmal atrial fibrillation. The patient had mitral valve replacement in view of possible history of mitral stenosis. She will be qualified for an anticoagulation therapy in particular with warfarin. I must say that anticoagulation therapy is contraindicated in the presence of a prior mitral stenosis and of valvular atrial fibrillation. Currently, the patient is in sinus rhythm. Her [id number] score is considered to be at least 2 for being female gender as well as presence of a diabetes mellitus. 2. History of mitral valve replacement, bioprosthetic. The patient will require to be on aspirin therapy on a daily basis. 3. Seizure disorder. Currently, seen by the Neurology service. I would like to thank, Dr. Lopez, for allowing me to participate in the care of this patient. Jun Brown M.D. DR: LIDA JOB#: [id number] CC:
--- NOTE | 2016-12-22 16:53 | Discharge Summary ---
Discharge Summary Hospital Course Date of Admission Dec 18, 2016 at 22:38 Date of Discharge Dec 21, 2016 at 18:10 Admitting Diagnosis new onset seizure ESTELA Andujar is a 56 year old female who was admitted on Dec 18, 2016 at 22 :38 for New Onset Seizure Hospital Course d/c summary [id number] Discharge Medications Continued Medications: Clopidogrel* (Clopidogrel*) 75 Mg Tablet 75 MG ORAL DAILY, TAB Ergocalciferol (Vitamin D2)* (Vitamin D*) 50,000 Unit Capsule [id number] UNIT ORAL ONCE A WEEK, CAP Famotidine (Famotidine) 40 Mg Tablet 40 MG ORAL EVERY 12 HOURS, #60 TAB 0 Refills Glimepiride* (Glimepiride*) 4 Mg Tablet 4 MG ORAL BID, TAB Levetiracetam (Keppra) 500 Mg Tablet 250 MG ORAL EVERY 12 HOURS, #60 TAB 0 Refills Metformin Hcl* (Metformin Hcl*) 500 Mg Tablet 500 MG ORAL TWICE A DAY, TAB Pravastatin Sod* (Pravastatin Sod*) 20 Mg Tablet 20 MG ORAL BEDTIME, TAB Sitagliptin* (Januvia*) 25 Mg Tablet 100 MG ORAL DAILY, TAB [m] () 5 MG PO in the morning methimazole 5 mg po in the morning Discharge Condition Upon Discharge: stable Discharge Disposition Patient was discharged to Home (01) Discharge Diagnoses: Discharge Instructions Discharge Instructions Special Instructions I have been assigned to complete a D/C Summary on this account. I was not involved in the patient management Kelsie Glover NP (Vanchtein) Dec 22, 2016 16:53
--- NOTE | 2016-12-23 12:45 | Discharge Summary 2 SIG ---
DATE OF ADMISSION: 12/18/2016 DATE OF DISCHARGE: 12/21/2016 REASON FOR ADMISSION: The patient is a 56-year-old female, presented to emergency room for evaluation. The patient has a past medical history of diabetes, atrial fibrillation, history of mitral valve replacement, and hyperlipidemia. The patient reported [place] The son at the bedside stated that he was walking behind the patient when she walk unsteady and had to lean against the wall. Once the patient was on the floor, he noted seizure-like activity for approximately 1 minute, noted foaming from the mouth. Seizure then subsided. The patient was initially confused on arrival. The son stated that the patient did not have any history of seizure in the past. Unsure, if the patient had a head injury or head trauma during this episode. No history of drug abuse. No chest pain or shortness of breath. No fever. No chills. Workup in the emergency room revealed, CT of the head was negative for any acute intracranial pathology. Urine tox screen was negative. Serum alcohol level, Tylenol level and were all negative. Urinalysis was negative. Electrolytes were stable. No leukocytosis. Stable hemoglobin and hematocrit. EKG shows normal sinus rhythm. No acute changes. A loading dose of Keppra started in the emergency department. The patient is more awake, but still confused as postictally given that with a new onset of seizure. The patient was admitted to telemetry floor. ADMITTING DIAGNOSES: Include, 1. New onset of seizure. 2. Diabetes mellitus type 2. 3. History of mitral valve replacement. HOSPITAL COURSE: The patient was admitted to telemetry floor. Cardiology and Neurology consults were requested. Neurologist seen and evaluated the patient and stated that the patient has a history of single episode of generalized tonic-clonic seizure with history of previous presyncope with loss of consciousness. Episodes of unknown etiology. He recommended to start the patient on Keppra 500 mg b.i.d. Ordered EEG and MRI. MRI of the brain revealed no acute intracranial pathology. EEG was abnormal in presence of epileptiform activity emanating from left temporal frontal region. Above abnormality indicated that the patient had a risk of developing clinical seizure activities, underlying left temporal area structural lesion should be ruled out, which was ruled out by negative MRI. Her Keppra dose however was decreased to 250 mg b.i.d. since the patient developed abdominal pain on 500 mg b.i.d. dosing. Seizure precautions were maintained. No further seizure activity while in the hospital. Blood sugar was managed with sliding scale of insulin and was stable. Cardiology consult was requested. Vice Principal seen and evaluated the patient. The patient was in sinus rhythm on telemetry. Per roofing sales representative, the patient had a history of mitral valve replacement bioprosthetic. The patient will require to be on aspirin therapy on a daily basis, which was started. The patient has a history of paroxysmal atrial fibrillation. The patient could be qualify for anticoagulation therapy with Coumadin. He recommended outpatient follow up with the primary doctor/roofing sales representative for consideration of anticoagulation. The patient was stable for discharge. No focal neuro deficits noted. Statin was continued. GI prophylaxis was provided. The patient was stable for discharge home. Follow up with the primary medical doctor. FINAL DIAGNOSES: Include, 1. New onset of seizure. 2. Diabetes mellitus type 2. 3. History of mitral valve replacement. 4. Paroxysmal atrial fibrillation. 5. Hyperlipidemia. 6. Abnormal electroencephalogram. DISCHARGE MEDICATIONS: See medication reconciliation list. New medication include Keppra 250 mg b.i.d. DISCHARGE INSTRUCTIONS: The patient is to follow up with the primary medical doctor and recommended referral to neurologist to follow up on the patient due to the new onset of seizure. Patrick Lopez M.D. I have been assigned to dictate discharge summary on this account and I was not involved in the patient's management. Kelsie Glover (vanchtein) NRonald VANN: GONZALEZ JOB#: [id number] CC:
== END 2016-12-21 18:10 | disposition home or self-care (01) | DRG 53 ==
LOC: EDBD 19:08 → EDBEDREQ 21:54 → EMR 22:35 → 2E 22:38 → EDBEDREQ 12-19 00:54 → 2E 12-19 01:53
DX: R56.9 Unspecified convulsions (principal); E11.65 Type 2 diabetes mellitus with hyperglycemia; Z95.2 Presence of prosthetic heart valve; I48.0 Paroxysmal atrial fibrillation; E78.5 Hyperlipidemia, unspecified; R94.31 Abnormal electrocardiogram [ECG] [EKG]; Z79.4 Long term (current) use of insulin
CPT/HCPCS: 36415; 70450; 70551; 80048; 80053; 80299; 80300; 80329; 81003; 82550; 82962; 84443; 84484; 85025; 93005; 95819; J1815

== ENCOUNTER 2017-03-27 03:31 | Emergency (ER) | payer OTHER ==
[~2017-03-27] VITALS: Ht 165.1 cm; Wt 70.3 kg
[~2017-03-27 03:31] MED LIST: CLOPIDOGREL75 MG ORAL; FAMOTIDINE40 MG ORAL; GLIMEPIRIDE4 MG ORAL; JANUVIA25 MG ORAL; KEPPRA500 M4 ORAL; METFORMIN HCL500 M1 ORAL; PRAVASTATIN SOD20 M1 ORAL; VITAMIN D250000 UNI1 ORAL; m PO
--- NOTE | 2017-03-27 03:41 | Emergency Room Report ---
History of Present Illness General Chief Complaint: Seizure Source: Family Member, EMS Present Illness HPI Is a 56-year-old [place] female with a history diabetes and seizure. She was admitted in December for new onset seizure and diabetes. She was discharged on Keppra and metformin. Patient presents with a chief complaint of seizure. Tonic-clonic in nature lasting about 30 seconds. No trauma. She was postictal. Per EMS they did not find any seizure medication at home. They did find metformin. Unable to get any history initially from the patient. History will be further obtained from the son when he gets here. Allergies: Coded Allergies: No Known Allergies (Unverified , 12/18/16) UNABLE TO ASSESS (Unverified , 03/27/17) Patient History Past Medical History: see triage record, old chart reviewed, DM, seizures Past Surgical History: other Pertinent Family History: none Social History: Denies: smoking Now: No Immunizations: other Reviewed Nursing Documentation: PMH: Agreed, PSxH: Agreed Nursing Documentation-PMH Hx Cardiac Problems: Yes - arrhythmiam, atrial fibrillation Hx Diabetes: Yes Hx Cancer: No Hx Gastrointestinal Problems: No Hx Neurological Problems: No Hx Seizures: Yes Review of Systems Eye: Denies: eye pain, blurred vision ENT: Denies: ear pain, nose congestion, throat swelling Respiratory: Denies: cough, shortness of breath Cardiovascular: Denies: chest pain, palpitations Gastrointestinal: Denies: abdominal pain, diarrhea, nausea, vomiting Musculoskeletal: Denies: back pain, joint pain Skin: Denies: rash Neurological: Denies: headache, numbness Endocrine: Denies: increased thirst, increased urine Hematologic/Lymphatic: Denies: easy bruising All Other Systems: negative except mentioned in HPI Physical Exam Vital Signs Date Time Temp Pulse Resp B/P (MAP) Pulse Ox O2 Delivery O2 Flow Rate FiO2 03/27/17 03:26 103 20 98 Room Air vitals unremarkable Sp02 EP Interpretation: reviewed, normal General Appearance: well appearing, no apparent distress, Postictal Head: normocephalic, atraumatic Eyes: bilateral eye PERRL, bilateral eye EOMI ENT: hearing grossly normal, normal pharynx Neck: full range of motion, supple, no meningismus Respiratory: chest non-tender, lungs clear, normal breath sounds Cardiovascular #1: regular rate, rhythm, no murmur Gastrointestinal: normal bowel sounds, non tender, no mass, no organomegaly, no bruit, non-distended Musculoskeletal: back normal, normal range of motion Neurologic: grossly normal Psychiatric: mood/affect normal Skin: warm/dry Medical Decision Making Diagnostic Impression: Primary Impression: Epileptic seizure, generalized ER Course She presents with a seizure. She has a history of seizure but not taking medication. It appeared that she thinks her medications causing a seizure. Her said that she's on too much medication and is too strong. Explained to them that as a lack of seizure medication and a causing her to have seizure. No significant lab abnormality. Patient improved. We'll discharge home. I gave her Keppra here. She does not drive so I see no need for DMV report. Lab Results Impression labs unremarkable Last Vital Signs Date Time Temp Pulse Resp B/P (MAP) Pulse Ox O2 Delivery O2 Flow Rate FiO2 03/27/17 03:36 103 20 Room Air 03/27/17 03:26 98 Status: improved Disposition: HOME, SELF-CARE Condition: Stable Scripts Levetiracetam (Keppra) 250 Mg Tablet 500 MG ORAL EVERY 12 HOURS, #60 TAB 0 Refills Prov: NANCY AREVALO M.D. 03/27/17 Patient Instructions: Seizure, Adult Additional Instructions: Take your medication. Followup with your Dr. in 2-3 days. Return if symptom worsen. NANCY AREVALO M.D. Mar 27, 2017 03:41
[2017-03-27] MEDS ORDERED: levETIRAcetam 500mg/NS100ml 100 ML IVPB ONE (03:45)
[2017-03-27 03:56] LABS: APPEARANCE,URINE CLEAR; KETONES,URINE NEGATIVE (NEGATIVE); LEUKOCYTE ESTERASE ,URINE NEGATIVE (NEGATIVE); NITRITE,URINE NEGATIVE (NEGATIVE); PH,URINE 5 (4.5-8.0); PROTEIN,URINE NEGATIVE (NEGATIVE); UROBILINOGEN,URINE NORMAL MG/DL (0.0-1.0)
[2017-03-27 04:03] LABS: MEAN CORPUSCULAR HEMOGLOBIN 33.5 PG (27.0-31.0); MEAN CORPUSCULAR HGB CONC 33.6 G/DL (32.0-36.0); MEAN CORPUSCULAR VOLUME 100 FL (80-99); MEAN PLATELET VOLUME 8.9 FL (6.5-10.1); MONOCYTES % (AUTO) 4.7 % (1.0-10.0); NEUTROPHILS % (AUTO) 55.3 % (45.0-75.0); PLATELET COUNT 189 K/UL (150-450); RED BLOOD COUNT 3.38 M/UL (4.20-5.40); RED CELL DISTRIBUTION WIDTH 12.9 % (11.6-14.8); WHITE BLOOD COUNT 5.2 K/UL (4.8-10.8)
[2017-03-27 04:04] LABS: RBC,URINE 0-2 /HPF (0 - 2); SQUAMOUS EPITHELIAL CELL,UR FEW /LPF (NONE/OCC); WBC,URINE 0 /HPF (0 - 2)
[2017-03-27 04:14] LABS: CALCIUM 9.1 mg/dL (8.6-10.2); CARBON DIOXIDE 25 mEQ/L (20-30); CHLORIDE 103 mEQ/L (98-107); CREATININE 0.8 mg/dL (0.5-0.9); GLOMERULAR FILTRATION RATE > 60 mL/min (>60); HEMOLYSIS 4; SODIUM 143 mEQ/L (135-145)
[2017-03-27 04:15] LABS: ANION GAP 15 (5-15); POTASSIUM 4.3 mEQ/L (3.4-4.9)
[2017-03-27] MEDS ORDERED: KEPPRA500 MG ORAL (04:27)
[2017-03-27 04:40] VITALS: BP 115/70
[2017-03-27 04:41] VITALS: BP 123/63
== END 2017-03-27 04:41 | disposition home or self-care (01) ==
LOC: EDBD 03:31 → EMR 04:00
DX: G40.909 Epilepsy, unspecified, not intractable, without status epilepticus (principal); E11.9 Type 2 diabetes mellitus without complications
CPT/HCPCS: 36415; 80048; 81001; 85025; 96374; 99284